=== PATIENT | male | born 1980 | race Caucasian/White ===

== ENCOUNTER 2019-07-18 22:57 | Emergency (ER) | payer OTHER ==
[~2019-07-18] VITALS: Ht 170.2 cm; Wt 77.1 kg
[~2019-07-18 22:57] MED LIST: ALPR1 PO; ASA; BUPRENORPHINE HC8 MG SL; BUPRENORPHN-NA1 EACH SL; BUSP15 PO; Bupropion HCl100 M1 PO; CHOL10002 PO; CLON.1 PO; Cipro500 MG PO; DIVA500ER PO; DOCU100 PO; FLUO20; Flagyl500 MG PO; GABA800; GLUC500 PO; HYOS.125 SL; IBUP600 PO; Ipratropium Bro30 ML; LEVE500 PO; LITH300C PO; METPRE4DP PO; NERVE PILL; OXYACE5T PO; OXYC5 PO; PHENY100ER PO; PROM25 PO; Pepcid20 MG PO; QUET25 PO; RISP1 PO; RISP3 PO; RXOXYACE PO; SAPHRIS5 MG SL; SENN187 PO; Seroquel50 MG PO; TRAM50 PO; VARE1 PO; Zyprexa10 MG PO
[2019-07-19] MEDS ORDERED: GABA400 PO
[2019-07-19] MEDS ORDERED: Prozac40 MG PO (00:01)
[2019-07-19] MEDS ORDERED: OLAN5 PO (00:01)
== END 2019-07-19 00:23 | disposition home or self-care (01) ==
LOC: ER 22:57
DX: S93.401A Sprain of unspecified ligament of right ankle, initial encounter (principal); X50.9XXA Other and unspecified overexertion or strenuous movements or postures, initial encounter; F17.210 Nicotine dependence, cigarettes, uncomplicated; F20.9 Schizophrenia, unspecified; Z79.899 Other long term (current) drug therapy
CPT/HCPCS: 73610; 99283-25

== ENCOUNTER → 2025-01-20 | Outpatient (CLI) | payer OTHER ==
[~2025-01-20] MED LIST changes: +GABA400 PO; +OLAN5 PO; +Prozac40 MG PO
[2025-01-20 12:10] LABS: Source, Urine Clean Catch
[2025-01-20 13:17] LABS: Bilirubin, Urine Neg (Neg); Color, Urine Yellow (P-Yellow); Glucose Qualitative, Urine Neg (Neg); Ketones, Urine Neg (Neg); Leukocyte Esterase, Urine Neg (Neg); Protein, Urine 2+ (Neg); Specific Gravity, Urine 1.010 (1.003-1.022); Urobilinogen, Urine 1+ (Normal)
[2025-01-20 13:39] LABS: Red Blood Cells, Urine Not Seen /hpf (0-2); White Blood Cells, Urine 0-2 /hpf (0-5)
== END ==
LOC: LAB 12:08 → LAB SHORT 12:08
PROVIDERS: Nurse Practitioner Family
DX: R30.0 Dysuria (principal)
CPT/HCPCS: 81001

== ENCOUNTER 2025-02-10 12:17 | Day surgery (SDC) | payer OTHER ==
[~2025-02-10] VITALS: Ht 170.2 cm; Wt 92.1 kg
[2025-02-10] MEDS ORDERED: SUBOXONE 8 MG-1 EACH (12:56)
[2025-02-10] MEDS ORDERED: AMPDEX15CR (12:56)
[2025-02-10] MEDS ORDERED: Prozac20 MG (12:57)
[2025-02-10] MEDS ORDERED: AZMIRO200 MG/1 M (12:58)
[2025-02-10] MEDS ORDERED: LISI20 (12:58)
[2025-02-10] MEDS ORDERED: [UNRECOGNIZED DRUG - OTHER] (12:59)
[2025-02-10] MEDS ORDERED: GLUCHON (12:59)
[2025-02-10] MEDS ORDERED: TIZA4 (12:59)
[2025-02-10 14:07] VITALS: BP 125/86
== END 2025-02-10 14:15 | disposition home or self-care (01) ==
LOC: ORSCSDS 12:17
PROVIDERS: Surgery
PROC: 0DBK8ZX Excision of Ascending Colon, Via Natural or Artificial Opening Endoscopic, Diagnostic (ICD-10-PCS; principal; 2025-02-10 13:45)
PROC: 0DBM8ZX Excision of Descending Colon, Via Natural or Artificial Opening Endoscopic, Diagnostic (ICD-10-PCS; principal; 2025-02-10 13:45)
DX: Z12.11 Encounter for screening for malignant neoplasm of colon (principal); D12.2 Benign neoplasm of ascending colon; K63.5 Polyp of colon; K64.1 Second degree hemorrhoids; K57.30 Diverticulosis of large intestine without perforation or abscess without bleeding; F41.9 Anxiety disorder, unspecified; Z87.891 Personal history of nicotine dependence; F31.9 Bipolar disorder, unspecified; G47.34 Idiopathic sleep related nonobstructive alveolar hypoventilation; F19.11 Other psychoactive substance abuse, in remission; I10 Essential (primary) hypertension; J45.909 Unspecified asthma, uncomplicated; E66.9 Obesity, unspecified; Z68.31 Body mass index [BMI] 31.0-31.9, adult; Z79.899 Other long term (current) drug therapy
CPT/HCPCS: 88305; J2704; J7120

== ENCOUNTER → 2025-02-22 | Outpatient (CLI) | payer OTHER ==
[~2025-02-22] MED LIST changes: +AMPDEX15CR; +AZMIRO200 MG/1 M; +GLUCHON; +LISI20; +Prozac20 MG; +SUBOXONE 8 MG-1 EACH; +TIZA4; +[UNRECOGNIZED DRUG - OTHER]
== END ==
LOC: LAB 17:00 → LAB SHORT 17:00
DX: N50.811 Right testicular pain (principal); R31.9 Hematuria, unspecified
CPT/HCPCS: 87086

== ENCOUNTER → 2025-03-09 | Outpatient (CLI) | payer OTHER ==
[2025-03-09 12:03] LABS: White Blood Cells, Urine 0-2 /hpf (0-5)
[2025-03-11 22:55] LABS: MYCOPLASMA GENITALIUM BY PCR Not Detected; MYCOPLASMA HOMINIS BY PCR Not Detected; UREAPLASMA MYCOPLASMA SOURCE Urine; UREAPLASMA PARVUM BY PCR Detected; UREAPLASMA UREALYTICUM BY PCR Not Detected
== END ==
LOC: MOI RAD 09:15 → LAB 09:15 → LAB SHORT 09:15
PROVIDERS: Urology
DX: N34.2 Other urethritis (principal)
CPT/HCPCS: 81015; 87563; 87798